=== PATIENT | female | born 1960 | race Caucasian/White ===

== ENCOUNTER 2023-04-07 16:41 | Emergency (ER) | payer MEDICARE, SELFPAY ==
[2023-04-07] VITALS (7 sets, daily range): BP systolic 108–128; BP diastolic 59–87; PULSE 77–90; RESP 15–18; TEMP 36; O2SAT 95–99
--- NOTE | ~2023-04-07 | XR_ITS ---
XR chest 2V DATE: 04/07/2023 18:22 INDICATION: Dizziness. History of urinary tract infection the past 2 days. TECHNIQUE: 2 views COMPARISON: 12/13/2015 2 view chest FINDINGS: There is bilateral apical capping and elevation of both anna marie, left greater than right, cons istent with bilateral upper lobe scarring and volume loss. These findings are stable since 12/13/2015. No surgical clips or sutures are identified. Heart size is normal. No hilar or mediastinal enlargement is evident. No pulmonary infiltrate or consolidation, pleural effusion or pulmonary vascular congestion or pneumo thorax. Prominent degenerative disc disease at L2-3. IMPRESSION: Chronic bilateral upper lobe scarring and volume loss No active pulmonary disease is detected Reviewed, dictated and finalized at location A.
--- NOTE | 2023-04-07 17:42 | ECG_ITS ---
Measurements Intervals [place] Rate: 77 P: 76 SD: 167 QRS: 42 QRSD: 69 T: 55 QT: 374 QTc: 425 Interpretive Statements SINUS RHYTHM BASELINE ARTIFACT- I, III, AVR, AVL, AVF NORMAL ECG NO PREVIOUS ECG AVAILABLE FOR COMPARISON Electronically Signed On 04-07-2023 21:37:41 CDT by Ceferino Fernandez D.O.
[2023-04-07 18:09] LABS: Basophils Percent Auto 0.4 % (0.2-1.2); Eosinophils Absolute Auto 0.1 K/mm3 (0-0.3); Eosinophils Percent Auto 1.3 % (0-4.4); Hemoglobin 13.6 g/dL (14.0-18.0); Immature Granulocyte Absolute 0.02 K/mm3 (0.00-0.031); Immature Granulocyte Percent A 0.3 % (0-0.5); Lymphocytes Absolute Auto 1.82 K/mm3 (0.9-3.2); Lymphocytes Percent Auto 24.4 % (18.3-44.2); Mean Corpuscular HGB Conc 32.4 g/dl (32-36); Mean Corpuscular Hemoglobin 29.1 pg (26-34); Mean Corpuscular Volume 89.9 fl (80-100); Mean Platelet Volume 9.3 fl (7.4-10.4); Monocytes Absolute Auto 0.4 K/mm3 (0.1-0.6); Monocytes Percent Auto 5.6 % (2.6-8.5); Neutrophils Absolute Auto 5.1 K/mm3 (1.3-6.7); Platelet Count Result 355 k/mm3 (150-375); Red Blood Count 4.67 M/mm3 (4.6-6.20); Red Cell Distribution Width 13.3 % (11.5-14.5); White Blood Count 7.5 K/mm3 (4.5-10.0)
--- NOTE | 2023-04-07 18:20 | PC.NURSE ---
pt has c/o generalized weakness. She reports she has been on abx x 3 days and now feels weak abd has suprapubic pain.
[2023-04-07 18:28] LABS: Alanine Aminotransferase 22 U/L (6-50); Albumin Level 4.9 g/dL (3.5-5.1); Alkaline Phosphatase 90 U/L (38-126); Anion Gap 7 mmol/L (8-16); Aspartate Amino Transferase 32 U/L (17-59); Bilirubin,Total 0.5 mg/dL (0.2-1.3); Blood Urea Nitrogen 16 mg/dL (9-20); Calcium 9.6 mg/dL (8.4-10.2); Carbon Dioxide 29 mmol/L (22-30); Chloride 99 mmol/L (98-107); Estimated CRCL calculation 66 ml/min; Estimated Glomerular Filt Rate > 60; Glucose 116 mg/dL (65-110); Potassium 4.8 mmol/L (3.4-5.0); Sodium 135 mmol/L (137-145)
--- NOTE | 2023-04-07 18:38 | ED.DIZZY ---
HPI - Dizziness General Chief Complaint: Dizziness <Isela Tobias PA-C - Last Filed: 04/08/23 03:53> Stated Complaint: Dizzy <Isela Tobias PA-C - Last Filed: 04/08/23 03:53> Time Seen by Provider: 04/07/23 18:18 <Isela Tobias PA-C - Last Filed: 04/08/23 03:53> History of Present Illness HPI Narrative: 62-year-old F reports from urgent care for evaluation of lightheadedness, nausea, fatigue and recently diagnosed UTI. Patient states 3 days ago, she started dysuria and bladder spasms. She has a history of recurrent UTIs and states this is normally how she presents. Reports taking Azo for symptoms until she was able to get into urgent care the following day. She went to urgent care, diagnosed with a UTI and sent home with Bactrim. She states she was feeling better until today when she began experiencing nausea, lightheadedness, and now burning in her genitalia along with itchiness. She does report a small amount of white discharge. States the symptoms are similar to previous yeast infections. She denies concern for STDs, back pain, fever, vomiting, diarrhea, cough or congestion, chest pain or shortness of breath, focal numbness or weakness, vision changes, diplopia. She states urgent care sent her to the ED after her blood pressure was found to be 86/50. She reports taking 5 doses of Bactrim. She showed me her recent culture on her mychart which grew e coli. <Isela Tobias PA-C - Last Filed: 04/08/23 03:53> Related Data Allergies/Adverse Reactions: Allergies Allergy/AdvReac Type Severity Reaction Status Date / Time hydrocodone Allergy Unknown Unknown Verified 04/07/23 19:03 prednisone AdvReac Unknown Unknown Verified 04/07/23 19:03 <Isela Tobias PA-C - Last Filed: 04/08/23 03:53> Review of Systems Review of Systems: CONSTITUTIONAL: Denies fever, chills EYES: Denies visual changes, redness, or discharge. ENT: Denies rhinorrhea, congestion, sore throat, or otalgia. CARDIOVASCULAR: Denies chest pain, palpitations, or edema. RESPIRATORY: Denies cough or dyspnea. GASTROINTESTINAL: See HPI GENITOURINARY: See HPI SKIN: Denies rash or itching. MUSCULOSKELETAL: Denies back pain, joint pain, or myalgia. NEUROLOGIC: See HPI PSYCHIATRIC: Denies anxiety or depression. <Isela Tobias PA-C - Last Filed: 04/08/23 03:53> Exam Narrative: GENERAL: Well-appearing, in no acute distress. Patient resting comfortably in exam bed. She is pleasant and conversational. HEAD: Normocephalic EYES: PERRLA, EOMI, no nystagmus ENT: Nares clear. Mucous membranes moist. Oropharynx without tonsillar hypertrophy exudate or other lesions. NECK: Supple. CHEST: No respiratory distress. Clear to auscultation, no adventitious breath sounds. HEART: Regular rate and rhythm. No murmur heard. Normal peripheral pulses. ABDOMEN: Soft, nontender, normal active bowel sounds. No CVA tenderness. EXTREMITIES: Normal range of motion. No edema. SKIN: Warm, dry, no rash. NEURO: No focal deficits. Alert and oriented x3. Cranial nerves II through XII intact. Strength 5/5 in BUE and BLE. Sensation intact throughout. No ataxia, dysarthria, aphasia. PSYCH: Normal mood and affect. <Isela Tobias PA-C - Last Filed: 04/08/23 03:53> Course Course Emergency Course: Pt walked to the bathroom with steady gate and reported improvement in dizziness/lightheadedness. Offered pelvic exam, she declined. <Isela Tobias PA-C - Last Filed: 04/08/23 03:53> MEDICAL INTERPRETER/PA Physician Supervision This is a was performed by both a physician and an APC. I performed all aspects of the MDM as documented w/ the following additions: 62-year-old female presenting with multiple complaints including dizziness and vaginal burning. She was rehydrated, treated for a yeast infection and given a headache cocktail. She felt improved and was discharged with primary care for follow-up. All questions answered. Patient in agreemen
[2023-04-07] MEDS: SODIUM CHLORIDE 0.9% IV 1,000 ML 999 ML IV CONT (19:02)
[2023-04-07] MEDS: ONDANSETRON INJ 4 MG/2 ML VIAL IV PUSH (19:03)
[2023-04-07 19:34] LABS: Troponin I < 0.012 ng/mL (0.000-0.034)
[2023-04-07 19:37] LABS: Influenza A QL RT-PCR Negative (Negative); Influenza B QL RT-PCR Negative (Negative); SARS-CoV-2 RNA PCR Negative (Negative)
[2023-04-07 21:26] LABS: Appearance Urine Clear (Clear); Bacteria Urine None Seen /hpf; Bilirubin Urine Negative (Negative); Blood Urine Negative (Negative); Color Urine Yellow (Yellow); Glucose Urine UA Negative (Negative); Ketones Urine Negative (Negative); Leukocyte Esterase Ur 1+ LEU/UL (Negative); Need Manual Microscopic Reviewed; Nitrate Urine Negative (Negative); Non Pathogenic Casts 0-2; Protein Urine Negative (Negative); RBC Urine 0-2 /hpf (0-2); Specific Grav Ur 1.003 (1.001-1.035); Squamous Epithelial Cell Urine None seen /hpf (Few); Urobilinogen Urine 0.2 mg/dL (<2.0); WBC Urine 0-5 /hpf; pH Urine 7.5 (5.0-9.0)
[2023-04-07 21:33] LABS: Add Urine Microscopic? YES
[2023-04-07] MEDS: KETOROLAC 15 MG/ML VIAL (*BKC) IV PUSH (22:10)
[2023-04-07] MEDS: PROCHLORPERAZINE EDISYLATE 10 MG/2 ML VIAL IV PUSH (22:10)
[2023-04-07] MEDS: diphenhydrAMINE HCl INJ 50 MG/ML VIAL 25 MG IV PUSH (22:10)
== END 2023-04-07 22:38 | disposition home or self-care (01) ==
PROVIDERS: Emergency Medicine; Emergency Provider Physician Assistant; PCP Family Medicine
DX: R42 Dizziness and giddiness (principal); R11.0 Nausea; R51.9 Headache, unspecified; B37.31 Acute candidiasis of vulva and vagina; Z20.822 Contact with and (suspected) exposure to COVID-19; Z87.440 Personal history of urinary (tract) infections
CPT/HCPCS: 36415; 71046; 80053; 81001; 84484; 85025; 87636; 93005; 96361; 96374; 96375; 99284; J0780; J1200; J1885; J2405; J7030; J7050